=== PATIENT | male | born 1980 | race Caucasian/White ===

== ENCOUNTER 2019-06-14 21:11 | Emergency (ER) | payer OTHER ==
[~2019-06-14] VITALS: Ht 182.9 cm; Wt 96.2 kg
[2019-06-14] MEDS ORDERED: IV RINGERS SOLUTION,LACTATED 1,000 ML IV SCH (21:36)
--- NOTE | 2019-06-14 21:40 | PHYS DOC ---
Past History Past Medical History: Other Additional Past Medical Histor: ADD Past Surgical History: No Surgical History Alcohol Use: Rarely Drug Use: None Adult General Chief Complaint Chief Complaint: BACK PAIN OR INJURY.. " I was just standing there cooking dinner.. and it felt like someone stabbed me in the back.. It almost took me to the ground... " HPI HPI Patient is a 38 year old male who presents with Lt flank pain . Pain radiated down into his lower abdomen from left upper flank. No history of bad food. No specific ill contacts. Patient immunosuppression. No family history of renal stones. Patient denies any history of renal stones. He denies any history of Crohn's or ulcerative colitis with him or family members. Patient normally healthy. No recent travel. No history of trauma. No hx of bad food. No hx problems with defecation or urination. Review of Systems Review of Systems Constitutional: Denies fever or chills [] Eyes: Denies change in visual acuity, redness, or eye pain [] HENT: Denies nasal congestion or sore throat [] Respiratory: Denies cough or shortness of breath [] Cardiovascular: No additional information not addressed in HPI [] GI: Plaints of left flank abdominal pain, nausea,. Denies vomiting, bloody stools or diarrhea [] : Denies dysuria or hematuria [] Musculoskeletal: Complaints of left flank back pain . Integument: Denies rash or skin lesions [] Neurologic: Denies headache, focal weakness or sensory changes [] Endocrine: Denies polyuria or polydipsia [] All other systems were reviewed and found to be within normal limits, except as documented in this note. Family History Family History Noncontributory Current Medications Current Medications Nursing for home meds Allergies Allergies No known drug allergies Physical Exam Physical Exam Constitutional: Well developed, well nourished, no acute distress, non-toxic appearance. [] HENT: Normocephalic, atraumatic, bilateral external ears normal, oropharynx moist, no oral exudates, nose normal. [] Eyes: PERRLA, EOMI, conjunctiva normal, no discharge. [] Neck: Normal range of motion, no tenderness, supple, no stridor. [] Cardiovascular:Heart rate regular rhythm, no murmur [] Lungs & Thorax: Bilateral breath sounds clear to auscultation [] Abdomen: Bowel sounds decreased, soft, left flank tenderness, no masses, no pulsatile masses. [] Rebound to left flank Skin: Warm, dry, no erythema, no rash. [] Back: No tenderness, left CVA tenderness. [] Extremities: No tenderness, no cyanosis, no clubbing, ROM intact, no edema. [No] Psoas sign. Neurologic: Alert and oriented X 3, normal motor function, normal sensory function, no focal deficits noted. [] Psychologic: Affect anxious, judgement normal, mood normal. [] Current Patient Data Vital Signs Vital Signs Date Time Temp Pulse Resp B/P (MAP) Pulse Ox O2 Delivery O2 Flow Rate FiO2 06/14/19 21:21 98.2 80 16 100 Room Air EKG EKG [] Radiology/Procedures Radiology/Procedures [address] [id number] IMAGING REPORT Signed PATIENT: PARISH MITCHELL ACCOUNT: [id number] : 1980 LOCATION: ER AGE: 38 SEX: M EXAM STATUS: REG ER ORD. PHYSICIAN: LENIN MABRY MD REASON: Lt flank pain PROCEDURE: CT ABDOMEN PELVIS WO CONTRAST CT ABDOMEN PELVIS WO CONTRAST History: Left flank pain. Technique: Noncontrast examination of the abdomen and pelvis. Coronal and sagittal reconstructions were performed. Exposure: One or more of the following individualized dose reduction techniques were utilized for this examination: 1. Automated exposure control 2. Adjustment of the mA and/or kV according to patient size 3. Use of iterative reconstruction technique. Comparison: None Findings: Lower chest: No consolidation or pleural effusion. Abdomen and pelvis: The liver, spleen, adrenal glands, pancreas and gallbladder are unremarkable. No obstructing urolithiasis. No hydronephrosis. Slight infiltration of the fat adjacent to the left kidney. Decompressed urinary bladder with wall thickening. Normal appendix. No evidence of bowel obstruction. No pathologic lymphadenopathy. No ascites. Mild atheromatous calcifications within the bilateral common iliac arteries, advanced for age. Bones: No pathologic osseous lesions. Impression: 1. Slight left perinephric fat stranding, may relate to infection or recently passed stone. No obstructing urolithiasis. 2. Decompressed urinary bladder with wall thickening, correlate for cystitis. 3. Mild atheromatous disease, advanced for age. Electronically signed by: Willard Dee DO (06/14/2019 10:11 PM) [facility] [][address] [address] IMAGING REPORT Signed PATIENT: PARISH MITCHELL ACCOUNT: [id number] : 1980 LOCATION: ER AGE: 38 SEX: M EXAM STATUS: REG ER ORD. PHYSICIAN: LENIN MABRY MD REASON: Lt. flank pain PROCEDURE: ACUTE ABDOMEN SERIES Exam: Acute abdominal series INDICATION: Left flank TECHNIQUE: Frontal view of the chest with upright and supine views of the abdomen and pelvis. Comparisons: None FINDINGS: The cardiomediastinal silhouette and pulmonary vessels are within normal limits. The lung and pleural spaces are clear. Air and stool are noted throughout the colon to level the rectum in a nonobstructive bowel gas pattern. No suspicious masses or calcifications. Visualized osseous structures are unremarkable. IMPRESSION: 1. No acute cardiopulmonary process. 2. Nonobstructive bowel gas pattern. Electronically signed by: Maxwell Kearns MD (06/14/2019 10:10 PM) [facility] DICTATED AND SIGNED BY: MAXWELL KEARNS MD DATE: 06/14/192209 CC: LENIN MABRY MD; JASE TAYLOR ~ Course & Med Decision Making Course & Med Decision Making Pertinent Labs and Imaging studies reviewed. (See chart for details) Patient's stay on clear fluid diet if nauseated. Patient to push fluids. Patient to take Keflex 500 mg 3 times a day. Patient follow up urine cultures. Patient follow-up primary care. Patient return if any concerns. Patient to save renal stone if passed. Impression: 1. Lt. Flank Pain 2. Renal Colic 3. Leukocytosis 12.3 4. Mild Elevation AST 38 [] Dragon Disclaimer Dragon Disclaimer This electronic medical record was generated, in whole or in part, using a voice recognition dictation system. Departure Departure: Disposition: 01 HOME/RESIDENCE PRIOR TO ADM Condition: STABLE Referrals: JASE TAYLOR (PCP) Scripts Ondansetron Hcl (ZOFRAN) 8 Mg Tablet 8 MG PO QIDPRN PRN for NAUSEA/VOMITING, #30 BOTTLE Prov: LENIN MABRY MD 06/14/19 Cephalexin (KEFLEX) 500 Mg Capsule 500 MG PO TID for leukocytosis for 7 Days, BOTTLE Prov: LENIN MABRY MD 06/14/19 Hydrocodone/Ibuprofen (HYDROCODONE-IBUPROFEN 7.5-200 ) 1 Each Tablet 1 TAB PO PRN Q6HRS PRN for PAIN, #30 TAB 0 Refills Prov: LENIN MABRY MD 06/14/19 Dragon Disclaimer This chart was dictated in whole or in part using Voice Recognition software in a busy, high-work load, and often noisy Emergency Department environment. It may contain unintended and wholly unrecognized errors or omissions. Dragon Disclaimer This chart was dictated in whole or in part using Voice Recognition software in a busy, high-work load, and often noisy Emergency Department environment. It may contain unintended and wholly unrecognized errors or omissions. Dragon Disclaimer This chart was dictated in whole or in part using Voice Recognition software in a busy, high-work load, and often noisy Emergency Department environment. It may contain unintended and wholly unrecognized errors or omissions. LENIN MABRY MD Jun 14, 2019 21:40
[2019-06-14] MEDS ORDERED: ONDANSETRON PF 4 MG/2 ML VIAL. IVP ONE (21:45)
[2019-06-14] MEDS ORDERED: KETOROLAC 30 MG/ML VIAL. IVP ONE (21:45)
--- NOTE | 2019-06-14 22:13 | RAD ---
Exam: Acute abdominal series INDICATION: Left flank TECHNIQUE: Frontal view of the chest with upright and supine views of the abdomen and pelvis. Comparisons: None FINDINGS: The cardiomediastinal silhouette and pulmonary vessels are within normal limits. The lung and pleural spaces are clear. Air and stool are noted throughout the colon to level the rectum in a nonobstructive bowel gas pattern. No suspicious masses or calcifications. Visualized osseous structures are unremarkable. IMPRESSION: 1. No acute cardiopulmonary process. 2. Nonobstructive bowel gas pattern. Electronically signed by: Maxwell Jin MD (06/14/2019 10:10 PM) [facility]
--- NOTE | 2019-06-14 22:15 | RAD ---
CT ABDOMEN PELVIS WO CONTRAST History: Left flank pain. Technique: Noncontrast examination of the abdomen and pelvis. Coronal and sagittal reconstructions were performed. Exposure: One or more of the following individualized dose reduction techniques were utilized for this examination: 1. Automated exposure control 2. Adjustment of the mA and/or kV according to patient size 3. Use of iterative reconstruction technique. Comparison: None Findings: Lower chest: No consolidation or pleural effusion. Abdomen and pelvis: The liver, spleen, adrenal glands, pancreas and gallbladder are unremarkable. No obstructing urolithiasis. No hydronephrosis. Slight infiltration of the fat adjacent to the left kidney. Decompressed urinary bladder with wall thickening. Normal appendix. No evidence of bowel obstruction. No pathologic lymphadenopathy. No ascites. Mild atheromatous calcifications within the bilateral common iliac arteries, advanced for age. Bones: No pathologic osseous lesions. Impression: 1. Slight left perinephric fat stranding, may relate to infection or recently passed stone. No obstructing urolithiasis. 2. Decompressed urinary bladder with wall thickening, correlate for cystitis. 3. Mild atheromatous disease, advanced for age. Electronically signed by: Willard Dee DO (06/14/2019 10:11 PM) [facility]
[2019-06-14 22:26] LABS: BASO # 0.1 x10^3/uL (0.0-0.2); BASO % 0 % (0-3); EOS % 0 % (0-3); HEMATOCRIT 43.6 % (39.0-53.0); HEMOGLOBIN 14.6 g/dL (13.0-17.5); LYMPH # 2.4 x10^3/uL (1.0-4.8); LYMPH % 19 % (24-48); MEAN CORPUSCULAR HEMOGLOBIN 32 pg (25-35); MEAN CORPUSCULAR HGB CONC 34 g/dL (31-37); MEAN CORPUSCULAR VOLUME 94 fL (79-100); MONO # 1.1 x10^3/uL (0.0-1.1); MONO % 9 % (0-9); NEUT # 8.7 x10^3uL (1.8-7.7); NEUT % 71 % (31-73); PLATELET COUNT 199 x10^3/uL (140-400); RED BLOOD COUNT 4.63 x10^6/uL (4.30-5.70); RED CELL DISTRIBUTION WIDTH 13.3 % (11.5-14.5); WHITE BLOOD COUNT 12.3 x10^3/uL (4.0-11.0)
[2019-06-14 22:53] LABS: ALBUMIN 3.8 g/dL (3.4-5.0); CALCIUM 8.9 mg/dL (8.5-10.1); CREATININE 1.1 mg/dL (0.7-1.3); DIRECT BILIRUBIN 0.1 mg/dL (0.0-0.2); GFR 75.7; MAGNESIUM 1.9 mg/dL (1.8-2.4); POTASSIUM 3.8 mmol/L (3.5-5.1); TOTAL BILIRUBIN 0.4 mg/dL (0.2-1.0); TOTAL PROTEIN 7.2 g/dL (6.4-8.2)
[2019-06-14 23:35] LABS: BILIRUBIN,URINE NEG (NEG); CLARITY,URINE CLEAR; COLOR,URINE AMBER; GLUCOSE,URINE NEG (NEG); NITRITE,URINE NEG (NEG); UROBILINOGEN,URINE 0.2 mg/dL (0.2 mg/dL)
[2019-06-14 23:36] LABS: BACTERIA,URINE FEW /HPF (0-FEW); RBC,URINE OCC /HPF (0-2); SQUAMOUS EPITHELIAL CELL,UR OCC /LPF
[2019-06-14] MEDS ORDERED: HYDR-1179 PO (23:53)
[2019-06-14] MEDS ORDERED: CEPH-264 PO (23:53)
[2019-06-14] MEDS ORDERED: ONDA8TAB9 PO (23:53)
[2019-06-15] MEDS ORDERED: IV NORMAL SALINE 50ML 50 ML ONE (00:13)
[2019-06-15] MEDS ORDERED: cefTRIAXone SODIUM 1 GM VIAL ONE (00:13)
[2019-06-15 00:15] VITALS: BP 120/64
[2019-06-16] MEDS ORDERED: OMEP-229 PO (07:51)
[2019-06-16] MEDS ORDERED: SULF1TAB23 PO (07:51)
[2019-06-16] MEDS ORDERED: DICY20TA3 PO (07:51)
[2019-06-16] MEDS ORDERED: ACET-704 PO (07:51)
[2019-06-17] MEDS ORDERED: OMEP-229 PO (15:54)
[2019-06-20] MEDS ORDERED: CEFD300C PO (12:23)
[2019-06-20] MEDS ORDERED: HYDR-2155 PO (12:23)
== END 2019-06-15 00:29 | disposition home or self-care (01) ==
LOC: ER 21:11 → MERGE 21:11 → ER 06-15 00:29
DX: N23 Unspecified renal colic (principal); D72.829 Elevated white blood cell count, unspecified; R74.8 Abnormal levels of other serum enzymes; F90.9 Attention-deficit hyperactivity disorder, unspecified type; Z87.442 Personal history of urinary calculi
CPT/HCPCS: 36415; 74022; 74176; 80048; 80076; 81001; 82550; 83735; 84484; 85025; 85610; 85730; 96374; 96375; 99285; J0696; J1885; J2405; J7120

== ENCOUNTER 2019-06-16 04:29 | Emergency (ER) | payer OTHER ==
[~2019-06-16] VITALS: Ht 182.9 cm; Wt 96.2 kg
[~2019-06-16 04:29] MED LIST: CEPH-264 PO; HYDR-1179 PO; ONDA8TAB9 PO
--- NOTE | 2019-06-16 04:31 | PHYS DOC ---
Past History Past Medical History: Other Additional Past Medical Histor: ADD (LENIN MBARY MD) Past Surgical History: No Surgical History (LENIN MABRY MD) Alcohol Use: Rarely Drug Use: None (LEINN MABRY MD) Adult General Chief Complaint Chief Complaint: ".. I got severe pain.. on my Lt.... it not in my back this time...but more to front and higher... ".. " The pain woke me up at 2:30... " The pain is just as bad.. if not worse than the other night.. I was here... " HPI HPI Patient is a 38 year old male who presents with above hx and complaints of abdomen pain, Lt upper, with some Lt flank pain. Pt. states the pain with movement up acutely at 2:30 AM. Patient currently rating his pain as 12 out of 10. Patient was seen on for similar complaints and felt to have possibly pyelonephritis or had passed a renal stone by CT results . Pt.had mild Leukocytosis 12.3 and AST elevation of 38 on 06/14. Patient denies any trauma. Patient denies immunosuppression. Patient denies noncompliance with his antibiotics. No hx of colitis with him or family members. Follows with Leonela for care. (LENIN MABRY MD) Review of Systems Review of Systems Constitutional: Denies fever or chills [] Eyes: Denies change in visual acuity, redness, or eye pain [] HENT: Denies nasal congestion or sore throat [] Respiratory: Denies cough or shortness of breath [] Cardiovascular: No additional information not addressed in HPI [] GI: Complaints of left upper and left flank abdominal pain, nausea. Denies, vomiting, bloody stools or diarrhea [] : Denies dysuria or hematuria [] Musculoskeletal: Denies back pain or joint pain [] Integument: Denies rash or skin lesions [] Neurologic: Denies headache, focal weakness or sensory changes [] Endocrine: Denies polyuria or polydipsia [] All other systems were reviewed and found to be within normal limits, except as documented in this note. (LENIN MABRY MD) Family History Family History Noncontributory (LENIN MABRY MD) Current Medications Current Medications See nursing for home meds (LENIN MABRY MD) Allergies Allergies Allergies Coded Allergies Type Severity Reaction Last Updated Verified No Known Drug Allergies 06/14/19 No (LENIN MABRY MD) Physical Exam Physical Exam Constitutional: in acute distress, non-toxic appearance. [] HENT: Normocephalic, atraumatic, bilateral external ears normal, oropharynx moist, no oral exudates, nose normal. [] Eyes: PERRLA, EOMI, conjunctiva normal, no discharge. [] Neck: Normal range of motion, no tenderness, supple, no stridor. [] Cardiovascular:Heart rate regular rhythm, no murmur [] Lungs & Thorax: Bilateral breath sounds clear to auscultation [] Abdomen: Bowel sounds decreased, soft, left upper and left flank tenderness on percussion, no masses, no pulsatile masses. [] Rebound to Lt upper abdomen. Skin: Warm, diaphoretic, no erythema, no rash. [] Back: No tenderness, no CVA tenderness. [] Extremities: No tenderness, no cyanosis, no clubbing, ROM intact, no edema. [] No psoas sign. Neurologic: Alert and oriented X 3, normal motor function, normal sensory function, no focal deficits noted. [] Psychologic: Affect anxious, judgement normal, mood normal. [] (LENIN MABRY MD) Current Patient Data Lab Results Laboratory Tests Test 06/16/19 04:45 06/16/19 05:35 White Blood Count 8.2 x10^3/uL Red Blood Count 4.57 x10^6/uL Hemoglobin 14.4 g/dL Hematocrit 43.2 % Mean Corpuscular Volume 95 fL Mean Corpuscular Hemoglobin 32 pg Mean Corpuscular Hemoglobin Concent 33 g/dL Red Cell Distribution Width 13.2 % Platelet Count 194 x10^3/uL Neutrophils (%) (Auto) 51 % Lymphocytes (%) (Auto) 36 % Monocytes (%) (Auto) 11 % Eosinophils (%) (Auto) 1 % Basophils (%) (Auto) 1 % Neutrophils # (Auto) 4.2 x10^3uL Lymphocytes # (Auto) 3.0 x10^3/uL Monocytes # (Auto) 0.9 x10^3/uL Eosinophils # (Auto) 0.1 x10^3/uL Basophils # (Auto) 0.1 x10^3/uL Sodium Level 140 mmol/L Potassium Level 4.0 mmol/L Chloride Level 104 mmol/L Carbon Dioxide Level 28 mmol/L Anion Gap 8 Blood Urea Nitrogen 21 mg/dL Creatinine 1.1 mg/dL Estimated GFR (Cockcroft-Gault) 75.7 Glucose Level 96 mg/dL Calcium Level 8.3 mg/dL Total Bilirubin 0.4 mg/dL Direct Bilirubin 0.1 mg/dL Aspartate Amino Transf (AST/SGOT) 27 U/L Alanine Aminotransferase (ALT/SGPT) 44 U/L Alkaline Phosphatase 70 U/L Total Protein 6.8 g/dL Albumin 3.6 g/dL Amylase Level 43 U/L Lipase 76 U/L Urine Collection Type Unknown Urine Color Yellow Urine Clarity Clear Urine pH 6.5 Urine Specific [place] 1.020 Urine Protein Neg Urine Glucose (UA) Neg mg/dL Urine Ketones (Stick) Neg mg/dL Urine Blood Trace Urine Nitrite Neg Urine Bilirubin Neg Urine Urobilinogen Dipstick 0.2 mg/dL Urine Leukocyte Esterase Neg Urine RBC 1-2 /HPF Urine WBC 5-10 /HPF Urine Squamous Epithelial Cells Occ /LPF Urine Bacteria Few /HPF Urine Mucus Slight /LPF Urine Opiates Screen Neg Urine Methadone Screen Neg Urine Barbiturates Neg Urine Phencyclidine Screen Neg Urine Amphetamine/Methamphetamine Pos Urine Benzodiazepines Screen Neg Urine Cocaine Screen Neg Urine Cannabinoids Screen Neg Urine Ethyl Alcohol Neg Current Medications Medications (Trade) Dose Ordered Sig/John Route PRN Reason Start Time Stop Time Status Last Admin Dose Admin Lactated Ringer's 1,000 ml @ 1,000 mls/hr Q1H IV 06/16/19 05:00 06/16/19 05:59 DC 06/16/19 04:58 Ketorolac Tromethamine (Toradol 30mg Vial) 30 mg 1X ONCE IVP 06/16/19 05:00 06/16/19 05:01 DC 06/16/19 04:58 Famotidine (Pepcid Vial) 20 mg 1X ONCE IVP 06/16/19 05:00 06/16/19 05:01 DC 06/16/19 04:58 Magnesium Hydroxide (Milk Of Magnesia) 2,400 mg 1X ONCE PO 06/16/19 05:00 06/16/19 05:01 DC 06/16/19 04:58 Ondansetron HCl (Zofran) 8 mg 1X ONCE IVP 06/16/19 05:30 06/16/19 05:31 DC 06/16/19 05:19 Ceftriaxone Sodium 1 gm/ Sodium Chloride 50 ml @ 100 mls/hr 1X ONCE IV 06/16/19 05:30 06/16/19 05:59 DC 06/16/19 05:19 Metronidazole 100 ml @ 100 mls/hr 1X ONCE IV 06/16/19 05:30 06/16/19 06:29 DC 06/16/19 05:19 Sodium Chloride 50 ml @ As Directed STK-MED ONCE .ROUTE 06/16/19 05:13 06/16/19 05:14 DC Ceftriaxone Sodium (Rocephin) 1 gm STK-MED ONCE .ROUTE 06/16/19 05:14 06/16/19 05:14 DC Iohexol (Omnipaque 240 Mg/ml) 30 ml 1X ONCE PO 06/16/19 06:00 06/16/19 06:01 DC Iohexol (Omnipaque 300 Mg/ml) 75 ml 1X ONCE IV 06/16/19 06:00 06/16/19 06:01 DC Info (Do NOT chart on this entry -- for MONITORING) 1 each PRN DAILY PRN MC SEE COMMENTS 06/16/19 05:30 06/18/19 05:29 Ondansetron HCl (Zofran) 8 mg 1X ONCE IVP 06/16/19 06:15 06/16/19 06:16 DC 06/16/19 06:02 Prochlorperazine Edisylate (Compazine) 10 mg 1X ONCE IV 06/16/19 06:15 06/16/19 06:17 DC 06/16/19 06:13 (JOURDAN VILLASENOR MD) EKG EKG [] (LENIN MABRY MD) Radiology/Procedures Radiology/Procedures [][address] [address] IMAGING REPORT Signed PATIENT: PARISH SALEH ACCOUNT: [id number] : 1980 LOCATION: ER AGE: 38 SEX: M EXAM STATUS: REG ER ORD. PHYSICIAN: LENIN MABRY MD REASON: pain, N/V, RUQ PAIN, X A FEW DAYS, WORSE X A FEW HOURS. PROCEDURE: ACUTE ABDOMEN SERIES Examination: Acute abdomen series HISTORY: History of pain, nausea, vomiting COMPARISON: 06/14/2019. FINDINGS: The cardiomediastinal silhouette grossly appears unremarkable. There is no acute infiltrate or visualized pneumothorax. No evidence of free air identified in the abdomen. The bowel gas pattern appears unremarkable. IMPRESSION: 1. No acute cardiopulmonary findings. 2. Unremarkable gas pattern. Electronically signed by: Frederick Hill MD (06/16/2019 5:07 AM) [facility] DICTATED AND SIGNED BY: FREDERICK HILL MD DATE: 06/16/19 0508 CC: LENIN MABRY MD; JASE TAYLRO ~ (LENIN MABRY MD) Radiology/Procedures PROCEDURE: CT ABD PELV W/ORAL&IV CONTRAST CT abdomen and pelvis with contrast: Reason for examination: Left upper abdominal pain. Comparison is made to previous study dated 04/14/2019. Helical images were obtained through the abdomen and pelvis with intravenous administration of 75 cc Omnipaque 300 and oral contrast. Reconstruction was performed in sagittal and coronal planes. Exposure: One or more of the following individualized dose reduction techniques were utilized for this examination: 1. Automated exposure control 2. Adjustment of the mA and/or kV according to patient size 3. Use of iterative reconstruction technique. The lung bases are clear. The heart size is normal with no pericardial effusion. No abnormality seen at the liver, spleen, adrenal glands, gallbladder or pancreas. The abdominal aorta and inferior vena cava show no acute abnormalities. The kidneys show areas of patchy decreased density in the mid and lower pole of the left kidney laterally which was not apparent on noncontrast CT and could reflect hilar nephritis No abnormality seen at the stomach, duodenum or small intestinal tract. There is no bowel obstruction. There is no evidence of diverticulosis or diverticulitis. No abnormality seen at the appendix. No abnormality seen at the bladder, prostate gland or seminal vesicles. No free fluid or free air is seen in the abdomen pelvis. IMPRESSION: Decreased density present laterally at the mid and lower pole of the left kidney. This may reflect pyelonephritis. No renal calculi or evidence of obstructive uropathy. Recommend clinical correlation. (JOURDAN VILLASENOR MD) Course & Med Decision Making Course & Med Decision Making Pertinent Labs and Imaging studies reviewed. (See chart for details) Will obtain CT with contrast on this visit since marked increase of pain from 06/14/ CT non- contrast reviewed. There was some findings of Lt perinephric fat stranding on that CT. - infection vs recently passed stone. Pt. endorsed to Dr. Villasenor at shift change. He will make disposition of pt. Impression: 1. Abdomen Pain- Lt. upper. [] (LENIN MABRY MD) Course & Med Decision Making Patient care was assumed at 6 AM shift change. Patient presents with abdominal pain which has been ongoing for the past 2-3 days. He states he initially had some left flank pain, and some epigastric pain, and now has some mild diffuse abdominal pain. On exam, the patient has some mild epigastric discomfort, right lower quadrant pain, and left CVA tenderness, there is no significant rebound or guarding. Notes from the patient's prior ER visit have been reviewed. The patient denies any genital pain or dysuria. He was given a course of Keflex during his last ER visit, and his urine today shows evidence of a urinary tract infection. His CT suggests pyelonephritis without any other abnormality. A urine culture was not obtained on his last ER visit, as his urine does not appear infected, but will be obtained from today's urine specimen. I discussed test results with the patient. I will switch his antibiotic to Bactrim, pending urine culture, as he has not improved on the Keflex previously prescribed. I will also give him medication for stomach cramping, and pain, and I discussed importance of further outpatient follow-up as well as a GI evaluation and as I suspect that there might be additional problems causing the patient's symptoms. Return precautions were reviewed in detail. (JOURDAN VILLASENOR MD) Dragon Disclaimer Dragon Disclaimer This electronic medical record was generated, in whole or in part, using a voice recognition dictation system. (LENIN MABRY MD) Departure Departure: Impression: Primary Impression: Abdominal pain Additional Impression: Pyelonephritis Disposition: 01 HOME, SELF-CARE Condition: STABLE Referrals: JASE TAYLOR (PCP) ABHAY MACKENZIE MD Patient Instructions: Abdominal Pain, Pyelonephritis, Adult Additional Instructions: Stop taking the previously prescribed antibiotic, and begin taking the newly prescribed antibiotic instead. Take the omeprazole once daily, to decrease acid production in your stomach. Use the dicyclomine as needed for stomach cramping, and Tylenol with Codeine as needed for pain. Further outpatient evaluation is required for further evaluation of your symptoms. Follow-up with Dr. Mackenzie, gastroenterology, for further evaluation. Scripts Dicyclomine Hcl (DICYCLOMINE HCL) 20 Mg Tablet 1 TAB PO QID PRN for Stomach Cramping, #20 TAB Prov: JOURDAN VILLASENOR MD 06/16/19 Acetaminophen With Codeine (TYLENOL WITH CODEINE #3 TABLET) 1 Each Tablet 1 TAB PO PRN Q6HRS PRN for pain MDD 4 Tablet(s), #15 TAB 0 Refills Prov: JOURDAN VILLASENOR MD 06/16/19 Omeprazole (OMEPRAZOLE) 20 Mg Capsule.dr 1 CAP PO DAILY for -, #30 CAP 0 Refills Prov: JOURDAN VILLASENOR MD 06/16/19 Sulfamethoxazole/Trimethoprim (BACTRIM 400-80 MG TABLET) 1 Each Tablet 1 TAB PO BID for - for 7 Days, #14 TAB 0 Refills Prov: JOURDAN VILLASENOR MD 06/16/19 Dragon Disclaimer This chart was dictated in whole or in part using Voice Recognition software in a busy, high-work load, and often noisy Emergency Department environment. It may contain unintended and wholly unrecognized errors or omissions. (LENIN MABRY MD) Problem Qualifiers LENIN MABRY MD Jun 16, 2019 04:31 JOURDAN VILLASENOR MD Jun 16, 2019 07:45
[2019-06-16 04:59] LABS: BASO # 0.1 x10^3/uL (0.0-0.2); BASO % 1 % (0-3); EOS # 0.1 x10^3/uL (0.0-0.7); EOS % 1 % (0-3); HEMATOCRIT 43.2 % (39.0-53.0); HEMOGLOBIN 14.4 g/dL (13.0-17.5); LYMPH % 36 % (24-48); MEAN CORPUSCULAR HEMOGLOBIN 32 pg (25-35); MEAN CORPUSCULAR HGB CONC 33 g/dL (31-37); MEAN CORPUSCULAR VOLUME 95 fL (79-100); MONO # 0.9 x10^3/uL (0.0-1.1); MONO % 11 % (0-9); NEUT # 4.2 x10^3uL (1.8-7.7); NEUT % 51 % (31-73); PLATELET COUNT 194 x10^3/uL (140-400); RED BLOOD COUNT 4.57 x10^6/uL (4.30-5.70); RED CELL DISTRIBUTION WIDTH 13.2 % (11.5-14.5); WHITE BLOOD COUNT 8.2 x10^3/uL (4.0-11.0)
[2019-06-16] MEDS ORDERED: KETOROLAC 30 MG/ML VIAL. IVP ONE (05:00)
[2019-06-16] MEDS ORDERED: FAMOTIDINE 20 MG/2 ML VIAL IVP ONE (05:00)
[2019-06-16] MEDS ORDERED: MAGNESIUM HYDROXIDE 2,400 MG/30 ML ORAL.SUSP. PO ONE (05:00)
[2019-06-16] MEDS ORDERED: IV RINGERS SOLUTION,LACTATED 1,000 ML IV SCH (05:00)
--- NOTE | 2019-06-16 05:10 | RAD ---
Examination: Acute abdomen series HISTORY: History of pain, nausea, vomiting COMPARISON: 06/14/2019. FINDINGS: The cardiomediastinal silhouette grossly appears unremarkable. There is no acute infiltrate or visualized pneumothorax. No evidence of free air identified in the abdomen. The bowel gas pattern appears unremarkable. IMPRESSION: 1. No acute cardiopulmonary findings. 2. Unremarkable gas pattern. Electronically signed by: Frederick Hill MD (06/16/2019 5:07 AM) [facility]
[2019-06-16 05:12] LABS: ALBUMIN 3.6 g/dL (3.4-5.0); CALCIUM 8.3 mg/dL (8.5-10.1); CREATININE 1.1 mg/dL (0.7-1.3); DIRECT BILIRUBIN 0.1 mg/dL (0.0-0.2); GFR 75.7; TOTAL BILIRUBIN 0.4 mg/dL (0.2-1.0); TOTAL PROTEIN 6.8 g/dL (6.4-8.2)
[2019-06-16] MEDS ORDERED: IV NORMAL SALINE 50ML 50 ML ONE (05:13)
[2019-06-16] MEDS ORDERED: cefTRIAXone SODIUM 1 GM VIAL ONE (05:14)
[2019-06-16] MEDS ORDERED: CONTRAST GIVEN MC PRN (05:30)
[2019-06-16] MEDS ORDERED: ONDANSETRON PF 4 MG/2 ML VIAL. IVP ONE ×2 (05:30→06:15)
[2019-06-16 05:58] LABS: BARBITURATES NEG (NEG); BENZODIAZEPINES NEG (NEG); CANNABINOIDS NEG (NEG); COCAINE NEG (NEG); METHADONE NEG (NEG); OPIATES NEG (NEG); PHENCYCLIDINE NEG (NEG)
[2019-06-16] MEDS ORDERED: IOHEXOL 300 MG/ML 75 ML VIAL. IV ONE (06:00)
[2019-06-16] MEDS ORDERED: IOHEXOL 240 MG/ML 50ML VIAL. PO ONE (06:00)
[2019-06-16 06:06] LABS: BILIRUBIN,URINE NEG (NEG); CLARITY,URINE CLEAR; COLOR,URINE YELLOW; GLUCOSE,URINE NEG (NEG); NITRITE,URINE NEG (NEG); UROBILINOGEN,URINE 0.2 mg/dL (0.2 mg/dL)
[2019-06-16 06:07] VITALS: BP 151/93
[2019-06-16 06:07] LABS: BACTERIA,URINE FEW /HPF (0-FEW); SQUAMOUS EPITHELIAL CELL,UR OCC /LPF
[2019-06-16 06:11] LABS: AMPHETAMINE/METHAMPHETAMINE POS (NEG)
[2019-06-16] MEDS ORDERED: PROCHLORPERAZINE 10 MG/2 ML VIAL. IV ONE (06:15)
--- NOTE | 2019-06-16 07:37 | RAD ---
CT abdomen and pelvis with contrast: Reason for examination: Left upper abdominal pain. Comparison is made to previous study dated 04/14/2019. Helical images were obtained through the abdomen and pelvis with intravenous administration of 75 cc Omnipaque 300 and oral contrast. Reconstruction was performed in sagittal and coronal planes. Exposure: One or more of the following individualized dose reduction techniques were utilized for this examination: 1. Automated exposure control 2. Adjustment of the mA and/or kV according to patient size 3. Use of iterative reconstruction technique. The lung bases are clear. The heart size is normal with no pericardial effusion. No abnormality seen at the liver, spleen, adrenal glands, gallbladder or pancreas. The abdominal aorta and inferior vena cava show no acute abnormalities. The kidneys show areas of patchy decreased density in the mid and lower pole of the left kidney laterally which was not apparent on noncontrast CT and could reflect hilar nephritis No abnormality seen at the stomach, duodenum or small intestinal tract. There is no bowel obstruction. There is no evidence of diverticulosis or diverticulitis. No abnormality seen at the appendix. No abnormality seen at the bladder, prostate gland or seminal vesicles. No free fluid or free air is seen in the abdomen pelvis. IMPRESSION: Decreased density present laterally at the mid and lower pole of the left kidney. This may reflect pyelonephritis. No renal calculi or evidence of obstructive uropathy. Recommend clinical correlation. Electronically signed by: Kathy Cadena MD (06/16/2019 7:34 AM) [facility]
[2019-06-16] MEDS ORDERED: SULF1TAB23 PO (07:51)
[2019-06-16] MEDS ORDERED: DICY20TA3 PO (07:51)
[2019-06-16] MEDS ORDERED: ACET-704 PO (07:51)
[2019-06-16] MEDS ORDERED: OMEP-229 PO (07:51)
[2019-06-16] MEDS ORDERED: MORPHINE SULFATE 4 MG/ML DISP.SYRIN. ONE (08:00)
[2019-06-16] MEDS ORDERED: MORPHINE SULFATE 4 MG/ML DISP.SYRIN. IV ONE (08:00)
[2019-06-17] MEDS ORDERED: LISD50CA3 PO (15:54)
[2019-06-17] MEDS ORDERED: OMEP-229 PO (15:54)
[2019-06-17] MEDS ORDERED: DICY10CA3 PO (15:55)
[2019-06-17] MEDS ORDERED: ONDA4TAB7 PO (15:55)
[2019-06-20] MEDS ORDERED: HYDR-2155 PO (12:23)
[2019-06-20] MEDS ORDERED: CEFD300C PO (12:23)
== END 2019-06-16 08:06 | disposition home or self-care (01) ==
LOC: MERGE 04:29 → ER 04:29
DX: N12 Tubulo-interstitial nephritis, not specified as acute or chronic (principal); N39.0 Urinary tract infection, site not specified
CPT/HCPCS: 36415; 74022; 74177; 80048; 80076; 80307; 81001; 82150; 83690; 85025; 87086; 96365; 96375; 96376; 99285; J0696; J0780; J1885; J2405; J3490; J7120

== ENCOUNTER 2019-06-17 13:44 | Inpatient (IN) | payer OTHER ==
[~2019-06-17] VITALS: Ht 182.9 cm; Wt 92.7 kg
[~2019-06-17 13:44] MED LIST changes: -CEFD300C PO; -DICY10CA3 PO; -HYDR-2155 PO; -LISD50CA3 PO; -OMEP-229 PO; +OMEP20CA16 PO; -ONDA4TAB7 PO
[2019-06-17 14:13] VITALS: BP 127/70
[2019-06-17] MEDS ORDERED: ACETAMINOPHEN 325 MG TABLET PO PRN (14:45)
--- NOTE | 2019-06-17 14:45 | NUR ---
The patient, PRAISH SALEH, 38 y/o, M admitted by DO OCONNOR MD, was given written information regarding hospital policies, unit procedures and contact persons. Valuables were checked and left in room. Patient is direct admission from Dr Sandoval office for pyelonephritis. States he has been to the ER and doctors office the past few days. Patient states that he recently had a shot of Toradol today while in the office and finally feels comfortable. Denies Nausea, vomiting or diarrhea upon admission to hospital. Spoke with Dr Oconnor, orders received for IV Fluids and ABT, LABS for AM. Call light within reach and educated on plan of care.
[2019-06-17] MEDS: IV NORMAL SALINE 1,000ML 1,000 ML IV SCH (15:10)
[2019-06-17] MEDS ORDERED: LISD50CA3 PO (15:54)
[2019-06-17] MEDS ORDERED: OMEP20CA16 PO (15:54)
[2019-06-17] MEDS ORDERED: DICY10CA3 PO (15:55)
[2019-06-17] MEDS ORDERED: ONDA4TAB7 PO (15:55)
[2019-06-17 16:41] LABS: BACTERIA,URINE 0 /HPF (0-FEW); BILIRUBIN,URINE NEG (NEG); CLARITY,URINE CLEAR; COLOR,URINE YELLOW; GLUCOSE,URINE NEG (NEG); NITRITE,URINE NEG (NEG); SQUAMOUS EPITHELIAL CELL,UR FEW /LPF; UROBILINOGEN,URINE 0.2 mg/dL (0.2 mg/dL)
[2019-06-17 18:36] VITALS: BP 131/76
[2019-06-17 23:09] VITALS: BP 142/75
[2019-06-18] MEDS: ONDANSETRON PF 4 MG/2 ML VIAL. IVP PRN (00:17)
[2019-06-18] MEDS: IV NORMAL SALINE 1,000ML 1,000 ML IV SCH ×3 (01:40→22:12)
[2019-06-18] MEDS: HYDROmorphone PF 2 MG/ML VIAL IV PRN ×4 (03:35→17:50)
[2019-06-18] MEDS: PROCHLORPERAZINE 10 MG/2 ML VIAL. IV PRN ×2 (03:35→14:54)
[2019-06-18 06:16] LABS: BASO # 0.1 x10^3/uL (0.0-0.2); BASO % 1 % (0-3); EOS % 0 % (0-3); HEMATOCRIT 39.3 % (39.0-53.0); HEMOGLOBIN 13.4 g/dL (13.0-17.5); LYMPH # 1.5 x10^3/uL (1.0-4.8); LYMPH % 14 % (24-48); MEAN CORPUSCULAR HEMOGLOBIN 32 pg (25-35); MEAN CORPUSCULAR HGB CONC 34 g/dL (31-37); MEAN CORPUSCULAR VOLUME 94 fL (79-100); MONO # 1.5 x10^3/uL (0.0-1.1); MONO % 14 % (0-9); NEUT # 7.6 x10^3uL (1.8-7.7); NEUT % 71 % (31-73); PLATELET COUNT 149 x10^3/uL (140-400); RED BLOOD COUNT 4.21 x10^6/uL (4.30-5.70); RED CELL DISTRIBUTION WIDTH 12.9 % (11.5-14.5); WHITE BLOOD COUNT 10.6 x10^3/uL (4.0-11.0)
[2019-06-18 06:20] LABS: ALBUMIN/GLOBULIN RATIO 0.9 (1.0-1.7); GFR 84.5; POTASSIUM 3.9 mmol/L (3.5-5.1); TOTAL BILIRUBIN 0.6 mg/dL (0.2-1.0); TOTAL PROTEIN 6.5 g/dL (6.4-8.2)
[2019-06-18] MEDS: NON FORMULARY ITEM (Lisdexamfetamine Dimesylate (Vyvanse) 1 CAP) PO SCH (08:00)
[2019-06-18] MEDS: PANTOPRAZOLE 40 MG TABLET. PO SCH (08:30)
[2019-06-18] MEDS: LACTOBACILLUS RHAMNOSUS GG 1 CAPSULE. PO SCH ×2 (08:30→21:00)
[2019-06-18 08:42] VITALS: BP 129/78
[2019-06-18 10:14] VITALS: BP 129/78
--- NOTE | 2019-06-18 11:26 | HP ---
ADMIT DATE: HISTORY OF PRESENT ILLNESS: The patient is a 38-year-old male patient who was admitted directly from his primary care physician's office who apparently has been under a traveling and he started vomiting. He was given a CAT scan and told it was pyelonephritis from possible recently passed kidney stone. He was given Keflex 500 mg 3 times a day and Zofran, which has not helped him. He continued to have severe pain in the left flank area with associated nausea and vomiting. He was seen in the Emergency Room twice on Monday and Monday. CT scan on Monday morning at 4:00 a.m. possible food poisoning and on , CT scan showed a delayed nephrogram on the left kidney consistent with renal injury as characterized by patchy enhancement. The patient was admitted with acute pyelonephritis. He was started on IV antibiotic in the form of Rocephin, IV fluid, pain medication and antiemetic. PAST MEDICAL HISTORY: Significant for depression, but otherwise he is generally unremarkable. PAST SURGICAL HISTORY: Significant for Lasik eye surgery and mole removal from the chest. ALLERGIES: He has no known drug allergies. MEDICATIONS: He is currently on Vyvanse as well as dicyclomine. FAMILY HISTORY: He has 1 younger sister who is healthy. His father in his 50s. Mother is still alive and generally unremarkable. SOCIAL HISTORY: He is , has 3 sons. He smokes between 2-3 cigarettes to one and a half pack a day. Does not drink alcohol or use any recreational drugs. He is a student truck driver. REVIEW OF SYSTEMS: As per history of present illness. PHYSICAL EXAMINATION: GENERAL: On arrival to the hospital, he looked well and was clearly in no apparent respiratory distress. No pallor, jaundice, cyanosis or thyromegaly. No jugular venous distention. No limb edema. VITAL SIGNS: His heart rate was 72, blood pressure was 127/70, temperature was 99.4, respiratory rate was 20, and oxygen saturation was 98%. HEAD, EYES, EARS, NOSE AND THROAT: Showed normocephalic, atraumatic. NECK: Supple. HEART: Showed normal first and second heart sounds with no gallop, rub or murmur. CHEST: Clear to auscultation. No crepitation or rhonchi. ABDOMEN: Distended, soft, nontender. No guarding or rigidity. No organomegaly. All hernial orifice intact. Bowel sounds normal. He definitely has tenderness on the left flank area. NEUROLOGIC: He is awake, alert, responding appropriately. All cranial nerves intact. EXTREMITIES: He moves extremities without difficulty. He ambulates without assistance or assistive devices. LABORATORY DATA: His lab work on arrival, his white cell count today was 10,600, hemoglobin 13.4, hematocrit 39, MCV 94 and platelet count of 149,000; however, yesterday, his white cell count was up to 13,700. His chemistry showed serum sodium of 136, potassium 3.9, chloride 100, bicarbonate 25, anion gap of 11, BUN 12, creatinine 1, estimated GFR was 84 mL per minute. His glucose was 87, calcium was 8. Total bilirubin, AST, ALT, alkaline phosphatase were normal. C-reactive protein was high at 71.7 mg/dL. His total protein was 6.5, albumin 3. Urinalysis on 06/17/2019 showed the urine was yellow, clear with a pH of 6.5, specific gravity of 1.010. The urine was negative for protein, glucose. There is small amount of ketones, small amount of blood, negative for nitrite and leukocyte esterase. There is only 3-5 rbc's, 1-4 wbc's, and very few bacteria. ASSESSMENT AND PLAN: The patient was admitted basically with diagnosis of acute pyelonephritis involving mostly left kidney, although the episodic pain more consistent with probably passing some stones. He was started on IV Rocephin together with IV fluid and fentanyl as well as ondansetron. We sent urine and blood for culture and sensitivity and we will decide on further management accordingly. DO OCONNOR MD DR: EVI/tommie JOB#: [id number] / [id number]
--- NOTE | 2019-06-18 12:34 | NUR ---
Patient complaining of a increased frequency to urinate along with stating he was voiding small amounts at a time. Reported patient statements to Dr Ram who recommended bladder scanning along with adding Flomax to patients medication administration list. Bladder scanned patient with findings of 43 mls urine retained post void. Void was 50 mils prior to scan. Patient still complaining of left flank pain along with lower left abdominal pain,
[2019-06-18] MEDS: TAMSULOSIN 0.4 MG CAP.ER.24H. PO SCH (14:43)
[2019-06-18 19:33] VITALS: BP 136/81
--- NOTE | 2019-06-18 21:00 | PN ---
DATE: 06/18/2019 SUBJECTIVE: The patient is resting, slightly propped up in bed, in no apparent distress. He apparently again developed severe episode of nausea, vomiting, and pain has become extremely severe that fentanyl was not effective and we have to switch him to hydromorphone 2 mg IV every 3 hours, switch his antiemetic to Compazine. We did continue the IV fluid. By the time I saw him this morning, he looked well and was clearly in no apparent respiratory distress. No pallor, jaundice, cyanosis or thyromegaly. No jugular venous distention. No lower limb edema. OBJECTIVE: VITAL SIGNS: His heart rate was 73, blood pressure was 129/78, temperature was 97.3, respiratory rate was 18 and oxygen saturation was 97% on room air. HEAD, EYES, EARS, NOSE AND THROAT: Showed normocephalic, atraumatic. NECK: Supple. HEART: Showed normal first and second heart sounds. No gallop or murmur. CHEST: Clear to auscultation. No crepitation or rhonchi. There is marked tenderness at the left renal angle. ABDOMEN: Slightly distended, soft, nontender. No guarding or rigidity. No organomegaly. All hernial orifices intact. Bowel sounds normal. NEUROLOGIC: He was awake, alert, responding appropriately. All cranial nerves are intact. He moves extremities without difficulty. His intake was 2015, output was recorded. LABORATORY DATA: His lab work showed a white cell count of 10,600, hemoglobin 13.4, hematocrit 39, MCV 94 and platelet count of 149,000. His chemistry showed a serum sodium 136, potassium 3.9, chloride 100, bicarbonate 25, anion gap of 11, BUN 12, creatinine 1, estimated GFR was 84 mL per minute. His glucose was 87, calcium was 8. Total bilirubin, AST, ALT, alkaline phosphatase were normal. Total protein was 6.5, albumin 3. ASSESSMENT: Acute pyelonephritis. PLAN: To continue with IV Rocephin. Continue with IV hydromorphone and Compazine for pain and nausea and vomiting. Continue with IV fluid. We did start him on a clear liquid diet, to advance diet as tolerated. DO OCONNOR MD DR: EVI/tommie JOB#: [id number] / [id number]
[2019-06-18 22:41] VITALS: BP 134/77
[2019-06-19] MEDS: HYDROmorphone PF 2 MG/ML VIAL IV PRN ×3 (01:14→15:02)
[2019-06-19 05:29] VITALS: BP 132/71
[2019-06-19 06:20] LABS: HEMATOCRIT 38.6 % (39.0-53.0); HEMOGLOBIN 12.9 g/dL (13.0-17.5); RED BLOOD COUNT 4.12 x10^6/uL (4.30-5.70); WHITE BLOOD COUNT 9.3 x10^3/uL (4.0-11.0)
[2019-06-19 06:26] LABS: CALCIUM 8.3 mg/dL (8.5-10.1); CREATININE 0.9 mg/dL (0.7-1.3); GFR 95.5; POTASSIUM 3.6 mmol/L (3.5-5.1)
[2019-06-19] MEDS: NON FORMULARY ITEM (Lisdexamfetamine Dimesylate (Vyvanse) 1 CAP) PO SCH (08:00)
[2019-06-19] MEDS: TAMSULOSIN 0.4 MG CAP.ER.24H. PO SCH (09:15)
[2019-06-19] MEDS: PANTOPRAZOLE 40 MG TABLET. PO SCH (09:15)
[2019-06-19] MEDS: LACTOBACILLUS RHAMNOSUS GG 1 CAPSULE. PO SCH ×2 (09:15→21:00)
[2019-06-19] MEDS: IV NORMAL SALINE 1,000ML 1,000 ML IV SCH ×2 (09:21→16:30)
[2019-06-19 11:12] VITALS: BP 133/78
[2019-06-19 14:59] VITALS: BP 132/76
[2019-06-19 18:55] VITALS: BP 124/72
[2019-06-19 23:17] VITALS: BP 134/72
[2019-06-20] MEDS: IV NORMAL SALINE 1,000ML 1,000 ML IV SCH ×2 (02:30→10:11)
[2019-06-20] MEDS: ONDANSETRON PF 4 MG/2 ML VIAL. IVP PRN (03:14)
[2019-06-20 06:09] VITALS: BP 143/78
[2019-06-20] MEDS: NON FORMULARY ITEM (Lisdexamfetamine Dimesylate (Vyvanse) 1 CAP) PO SCH (08:00)
[2019-06-20] MEDS: PANTOPRAZOLE 40 MG TABLET. PO SCH (08:17)
[2019-06-20] MEDS: LACTOBACILLUS RHAMNOSUS GG 1 CAPSULE. PO SCH (08:17)
[2019-06-20] MEDS: TAMSULOSIN 0.4 MG CAP.ER.24H. PO SCH (08:17)
[2019-06-20 10:56] VITALS: BP 130/77
[2019-06-20] MEDS ORDERED: HYDR-2155 PO (12:23)
[2019-06-20] MEDS ORDERED: CEFD300C PO (12:23)
--- NOTE | 2019-06-20 13:56 | NUR ---
Patient is discharging agrees with discharge plan. IV out. Scripts given, RN called [facility] to get patient appointment. They are booked until after July 10, sent records to their office to see if they can get appointment sooner. They will call patient with appointment. RN relayed this information to patient.
--- NOTE | 2019-06-20 22:10 | DS ---
DATE OF DISCHARGE: 06/20/2019 HOSPITAL COURSE: The patient is a 38-year-old male patient, who was admitted with a complaint of left flank pain. He has also multiple episodes of nausea and vomiting. He was seen in the Emergency Room twice. CT scan showed that he has delayed pyelogram and the left kidney consistent with renal injury and was admitted with acute pyelonephritis. We started him on IV Rocephin, IV fluid, pain medication, and antiemetic and he did very well. The patient has had no further episodes of pain, no vomiting, and no nausea. We started him on a clear liquid diet and advanced diet as tolerated. He is now tolerating his diet, has no further episodes of nausea or vomiting, and the decision was made to discharge him home to continue with oral antibiotic and IV pain medication and to make an appointment for him to be seen by urologist as he has marked thickening of his urinary bladder and changes in his left kidney consistent with acute pyelonephritis. PHYSICAL EXAMINATION: GENERAL: When I examined him, he looked well and was clearly in no apparent respiratory distress. No pallor, jaundice, cyanosis, or thyromegaly. No jugular venous distention. No limb edema. VITAL SIGNS: His heart rate was 68, blood pressure was 130/77, temperature was 98.1, respiratory rate 20, and oxygen saturation was 97%. HEAD, EYES, EARS, NOSE, AND THROAT: Showed normocephalic and atraumatic. NECK: Supple. HEART: Showed normal first and second heart sounds. No gallop, rub, or murmur. CHEST: Clear to auscultation. No crepitation or rhonchi. ABDOMEN: Distended, soft, and nontender. No guarding or rigidity. No organomegaly. All hernial orifice intact. Bowel sounds normal. NEUROLOGIC: He was awake, alert, and responding appropriately. He ambulates without assistance or assistive devices. LABORATORY WORK: Showed a white cell count of 9300, hemoglobin 13, hematocrit 37, MCV 94, and platelet count of 142,000. His chemistry showed a serum sodium 133, potassium 3.6, chloride 98, bicarbonate 29, anion gap of 6, BUN 8, and creatinine was 0.9. Estimated GFR was 95 mL per minute. His glucose is 109 and calcium was 8.3. His C-reactive protein was 144 and sed rate was 39 mm per hour. DISCHARGE MEDICATIONS: He was discharged home to continue on cefdinir 300 mg twice a day for 7 more days. Continue with hydrocodone/APAP 5/325 one tablet every 6 hours. Should continue also on dicyclomine 10 mg every 6 hours, Vyvanse 1 capsule daily with breakfast, omeprazole 20 mg once a day, and ondansetron 4 mg every 6 hours. FINAL DISCHARGE DIAGNOSES: 1. Left-sided acute pyelonephritis. 2. Acute cystitis. 3. Irritable bowel syndrome. 4. Depression. 5. Gastroesophageal reflux disease. DO OCONNOR MD DR: EVI/tommie JOB#: [id number] / [id number]
== END 2019-06-20 13:58 | disposition home or self-care (01) | DRG 690 ==
LOC: 1 SOUTH 13:44
PROVIDERS: ADMIT Internal Medicine; ATTEND Internal Medicine
DX: N10 Acute pyelonephritis (principal); N30.00 Acute cystitis without hematuria; F32.9 Major depressive disorder, single episode, unspecified; F17.210 Nicotine dependence, cigarettes, uncomplicated; K58.9 Irritable bowel syndrome, unspecified; K21.9 Gastro-esophageal reflux disease without esophagitis; Z87.442 Personal history of urinary calculi
CPT/HCPCS: 36415; 80048; 80053; 81001; 84550; 85025; 85027; 85651; 86140; 87040; J0696; J0780; J1170; J2405; J3010; J7030

== ENCOUNTER → 2019-06-17 | Outpatient (CLI) | payer OTHER ==
[~2019-06-17] MED LIST changes: +ACET-704 PO; +CEFD300C PO; +DICY10CA3 PO; +DICY20TA3 PO; +HYDR-2155 PO; +LISD50CA3 PO; +OMEP-229 PO; +ONDA4TAB7 PO; +SULF1TAB23 PO
--- NOTE | 2019-06-17 12:25 | RAD ---
CT ABDOMEN PELVIS WO CONTRAST INDICATION: Abdominal pain EXAM: Noncontrast CT of the abdomen and pelvis. Coronal and sagittal reformatted images were performed. PQRS compliance statement: One or more of the following individualized dose reduction techniques were utilized for this examination: 1. Automated exposure control 2. Adjustment of the mA and/or kV according to patient size 3. Use of iterative reconstruction technique COMPARISON: CT abdomen pelvis 06/16/2019 FINDINGS: No free air, free fluid, or fluid collection. Lower chest: The visualized lower lungs are aerated. No pleural or pericardial effusion. ABDOMEN: Liver: The noncontrast liver is homogeneous in attenuation. Gallbladder and biliary: Vicarious excretion of contrast within the gallbladder. Normal caliber bile ducts. Spleen: Normal spleen. Pancreas: The noncontrast pancreas is homogeneous in attenuation without peripancreatic inflammatory changes. Adrenal glands: Normal adrenal glands. Kidneys and ureters: No opaque urinary calculi. No hydronephrosis. Mild patchy renal enhancement on the left. GI tract: The stomach is decompressed and poorly evaluated. Normal caliber small bowel and colon. Normal appendix. Vascular structures: Normal caliber abdominal aorta. Lymph nodes: No lymphadenopathy in the abdomen or pelvis. PELVIS: Genitourinary system: Mild circumferential bladder wall thickening. Normal prostate gland and seminal vesicles. SKELETAL STRUCTURES AND SOFT TISSUES: No fracture or destructive lesion in the visualized skeleton. IMPRESSION: 1. No hydronephrosis or opaque urinary calculi. 2. Delayed nephrogram on the left consistent with renal injury, as characterized by patchy enhancement seen on the prior CT. 3. Mild diffuse bladder wall thickening, which could relate to underdistention or potentially cystitis. Consider urinalysis. Electronically signed by: Jaden Dai MD (06/17/2019 12:22 PM) [facility]
== END | disposition home or self-care (01) ==
LOC: CT 11:31
PROVIDERS: ATTEND Registered Nurse
DX: N12 Tubulo-interstitial nephritis, not specified as acute or chronic (principal); R11.2 Nausea with vomiting, unspecified
CPT/HCPCS: 74176

== ENCOUNTER → 2019-06-17 | Outpatient (CLI) | payer OTHER ==
[2019-06-17 11:55] LABS: BASO # 0.1 x10^3/uL (0.0-0.2); BASO % 1 % (0-3); EOS % 0 % (0-3); HEMATOCRIT 44.4 % (39.0-53.0); HEMOGLOBIN 14.9 g/dL (13.0-17.5); LYMPH # 1.4 x10^3/uL (1.0-4.8); LYMPH % 10 % (24-48); MEAN CORPUSCULAR HEMOGLOBIN 31 pg (25-35); MEAN CORPUSCULAR HGB CONC 34 g/dL (31-37); MEAN CORPUSCULAR VOLUME 93 fL (79-100); MONO # 1.9 x10^3/uL (0.0-1.1); MONO % 14 % (0-9); NEUT # 10.4 x10^3uL (1.8-7.7); NEUT % 76 % (31-73); PLATELET COUNT 169 x10^3/uL (140-400); RED BLOOD COUNT 4.76 x10^6/uL (4.30-5.70); RED CELL DISTRIBUTION WIDTH 12.9 % (11.5-14.5); WHITE BLOOD COUNT 13.7 x10^3/uL (4.0-11.0)
[2019-06-17 12:04] LABS: ALBUMIN 3.7 g/dL (3.4-5.0); C REACTIVE PROTEIN 71.7 mg/L (0-3.3); CALCIUM 9.2 mg/dL (8.5-10.1); CREATININE 1.1 mg/dL (0.7-1.3); GFR 75.7; POTASSIUM 4.2 mmol/L (3.5-5.1); TOTAL BILIRUBIN 0.8 mg/dL (0.2-1.0); TOTAL PROTEIN 7.4 g/dL (6.4-8.2)
== END | disposition home or self-care (01) ==
LOC: PMG 11:15
PROVIDERS: ATTEND Registered Nurse
DX: N12 Tubulo-interstitial nephritis, not specified as acute or chronic (principal); R10.9 Unspecified abdominal pain; R11.2 Nausea with vomiting, unspecified
CPT/HCPCS: 36415; 80053; 82150; 83690; 85025; 86140

== ENCOUNTER 2021-02-10 07:58 | Emergency (ER) | payer OTHER ==
[~2021-02-10] VITALS: Ht 182.9 cm; Wt 100.0 kg
[~2021-02-10 07:58] MED LIST changes: +CEFD300C PO; +DICY10CA3 PO; +HYDR-2155 PO; +LISD50CA3 PO; +ONDA4TAB7 PO
--- NOTE | 2021-02-10 08:23 | RAD ---
XR HAND_RIGHT 3 VIEWS History: Trauma, third digit crush injury. Comparison: None. Technique: 3 views of the right hand. Findings: Osseous mineralization is normal. No fracture or dislocaton. No significant degenerative changes. Sof t tissues are unremarkable. Impression: 1. No acute osseous abnormality of the right hand. Electronically signed by: Jaren Jones MD (02/10/2021 8:21 AM) [id number]
[2021-02-10 08:32] VITALS: BP 116/68
--- NOTE | 2021-02-10 08:46 | PHYS DOC ---
Past History Additional Smoking Information: / PPD Alcohol Use: Rarely General Adult EDM: Chief Complaint: HAND PROBLEM HPI: HPI: 40-year-old male presents with right hand pain. The patient was going to adjust a piece of machinery and that had high pressure and pulled his hand against a blunt object. He has a small abrasion of the middle finger dorsal side. He also has some ecchymosis of the ventral fifth digit. He just wants to make sure he did not have a fracture. He has no other complaints this time. Review of Systems: Review of Systems: Constitutional: Denies fever or chills Eyes: Denies change in visual acuity HENT: Denies nasal congestion or sore throat Respiratory: Denies cough or shortness of breath Cardiovascular: Denies chest pain or edema GI: Denies abdominal pain, nausea, vomiting, bloody stools or diarrhea : Denies dysuria Musculoskeletal: Right hand pain Integument: Denies rash Neurologic: Denies headache, focal weakness or sensory changes Endocrine: Denies polyuria or polydipsia Lymphatic: Denies swollen glands Psychiatric: Denies depression or anxiety Allergies: Allergies: Allergies Coded Allergies Type Severity Reaction Last Updated Verified No Known Allergies Allergy Severe 06/17/19 Yes Physical Exam: PE: Constitutional: Well developed, well nourished, no acute distress, non-toxic appearance. [] HENT: Normocephalic, atraumatic, bilateral external ears normal, oropharynx moist, no oral exudates, nose normal. [] Eyes: PERRLA, EOMI, conjunctiva normal, no discharge. [] Neck: Normal range of motion, no tenderness, supple, no stridor. [] Cardiovascular:Heart rate regular rhythm, no murmur [] Lungs & Thorax: Bilateral breath sounds clear to auscultation [] Abdomen: Bowel sounds normal, soft, no tenderness, no masses, no pulsatile masses. [] Skin: Warm, dry, no erythema, no rash. [] Back: No tenderness, no CVA tenderness. [] Extremities: No tenderness, no cyanosis, no clubbing, ROM intact, no edema. [] Neurologic: Alert and oriented X 3, normal motor function, normal sensory function, no focal deficits noted. [] Psychologic: Affect normal, judgement normal, mood normal. [] EKG: EKG: [] Radiology/Procedures: Radiology/Procedures: [] Impressions: XR HAND_RIGHT 3 VIEWS History: Trauma, third digit crush injury. Comparison: None. Technique: 3 views of the right hand. Findings: Osseous mineralization is normal. No fracture or dislocaton. No significant degenerative changes. Soft tissues are unremarkable. Impression: 1. No acute osseous abnormality of the right hand. Electronically signed by: Jaren Jones MD (02/10/2021 8:21 AM) [id number] DICTATED AND SIGNED BY: JAREN JONES MD DATE: 02/10/21819 CC: ROGER CULLEN DO; JASE TAYLOR ~MTH0 0 Heart Score: C/O Chest Pain: N/A Risk Factors: Risk Factors: DM, Current or recent (<one month) smoker, HTN, HLP, family history of CAD, obesity. Risk Scores: Score 0 - 3: 2.5% MACE over next 6 weeks - Discharge Home Score 4 - 6: 20.3% MACE over next 6 weeks - Admit for Clinical Observation Score 7 - 10: 72.7% MACE over next 6 weeks - Early Invasive Strategies Course & Med Decision Making: Course & Med Decision Making Pertinent Labs and Imaging studies reviewed. (See chart for details) The patient's x-ray is negative for fracture. This appears to be just a contusion. His small abrasion/laceration does not require repair. He is stable for discharge at this time. [] Dragon Disclaimer: Dragon Disclaimer: This electronic medical record was generated, in whole or in part, using a voice recognition dictation system. Departure Departure: Impression: Primary Impression: Contusion of right hand including fingers Qualified Codes: S60.221A - Contusion of right hand, initial encounter; S60.00XA - Contusion of unspecified finger without damage to nail, initial encounter Additional Impression: Abrasion of finger of right hand Qualified Codes: S60.419A - Abrasion of unspecified finger, initial encounter Disposition: HOME / SELF CARE / HOMELESS Condition: STABLE Referrals: JASE TAYLOR (PCP) Patient Instructions: Hand Contusion, [id number] ROGER CULLEN DO Feb 10, 2021 08:46
== END 2021-02-10 09:00 | disposition home or self-care (01) ==
LOC: ER 07:58
DX: S60.051A Contusion of right little finger without damage to nail, initial encounter (principal); S60.412A Abrasion of right middle finger, initial encounter; W22.8XXA Striking against or struck by other objects, initial encounter; Y93.89 Activity, other specified; Y92.89 Other specified places as the place of occurrence of the external cause; Y99.8 Other external cause status
CPT/HCPCS: 73130; 99283